=== PATIENT | female | born 1945 | race Caucasian/White ===

== ENCOUNTER 2017-12-31 14:53 | Observation (INO) | payer MEDICARE ==
[~2017-12-31] VITALS: Ht 162.6 cm; Wt 71.5 kg
[2017-12-31] MEDS ORDERED: LISINOPRIL10 MG PO (15:17)
[2017-12-31] MEDS ORDERED: ASPIRIN 325 MG TAB PO ONE (16:00)
[2017-12-31] MEDS ORDERED: ASPIRIN 81 MG CHEW TAB PO ONE (16:15)
[2017-12-31 18:05] VITALS: BP 169/73
[2017-12-31 18:15] VITALS: BP 169/73
[2017-12-31 19:51] VITALS: BP 169/73
[2017-12-31 22:09] VITALS: BP 157/67
[2017-12-31 22:10] VITALS: BP 157/67
[2018-01-01] VITALS (8 sets, daily range): BP systolic 116–151; BP diastolic 56–69
[2018-01-01 00:23] LABS: CREATINE KINASE MB 1.7 ng/mL (0-5.0)
[2018-01-01 06:38] LABS: BASOPHILS # (AUTO) 0.1 (0.0-0.1); BASOPHILS % 0.7 % (0.0-1.0); EOSINOPHILS # (AUTO) 0.1 (0.0-0.4); EOSINOPHILS % 1.4 % (0.0-6.0); HEMATOCRIT 39.5 % (34.2-44.1); HEMOGLOBIN 13.3 g/dL (12.0-16.0); LYMPHOCYTES # (AUTO) 4.1 (1.0-3.2); LYMPHOCYTES % 50.4 % (18.0-39.1); MEAN CORPUSCULAR HEMOGLOBIN 30.2 pg (28-32); MEAN CORPUSCULAR HGB CONC 33.7 g/dL (31-35); MEAN CORPUSCULAR VOLUME 89.8 fL (81-99); MONOCYTES # (AUTO) 0.6 (0.2-0.8); MONOCYTES % 7.4 % (4.4-11.3); NEUTROPHILS # (AUTO) 3.2 (2.1-6.9); NEUTROPHILS % 39.9 % (38.7-80.0); PLATELET COUNT 263 x10e3/uL (140-360); RED CELL DISTRIBUTION WIDTH 14.2 % (11.7-14.4)
[2018-01-01 06:57] LABS: ANION GAP 16.1 mmol/L (8-16); CALCIUM 9.9 mg/dL (8.4-10.2); CREATININE, SERUM 1.19 mg/dL (0.57-1.11); POTASSIUM 5.1 mmol/L (3.5-5.1)
[2018-01-01] MEDS: LISINOPRIL 10 MG TAB PO SCH (09:14)
[2018-01-01] MEDS ORDERED: METOPROLOL TARTRATE INJ 1 MG/ML VIAL IV PRN (12:45)
[2018-01-01] MEDS ORDERED: NITROGLYCERIN 0.4 MG SUBL SL PRN (12:45)
[2018-01-01] MEDS ORDERED: HYDRALAZINE HCL 20 MG/ML VIAL IV PRN (12:45)
[2018-01-01 13:14] LABS: CHOL/HDL RATIO 10.2 (3.0-3.6); CHOLESTEROL 235 MD/DL (0-199); HDL CHOLESTEROL 23 MG/DL (40-60); MAGNESIUM 1.7 MG/DL (1.3-2.1); TRIGLYCERIDES 464 MG/DL (0-149)
[2018-01-01 13:37] LABS: FREE THYROXINE INDEX 2.1264 (1.4-3.8); THYROID STIMULATING HORMONE 3.004 uIU/mL (0.350-4.940)
[2018-01-02] VITALS: BP 113/53
[2018-01-02 04:00] VITALS: BP 106/54
[2018-01-02 08:00] VITALS: BP 107/58
[2018-01-02] MEDS: LISINOPRIL 10 MG TAB PO SCH (09:00)
[2018-01-02 11:55] VITALS: BP 143/79
[2018-01-02 15:06] VITALS: BP 143/79
[2018-01-02 15:17] VITALS: BP 117/57
== END 2018-01-02 16:31 | disposition home or self-care (01) ==
LOC: FSED 14:53 → IMCU 16:02
PROVIDERS: ADMIT Internal Medicine; ATTEND Internal Medicine
DX: R07.89 Other chest pain (principal); R73.09 Other abnormal glucose; I10 Essential (primary) hypertension; Z82.49 Family history of ischemic heart disease and other diseases of the circulatory system
CPT/HCPCS: 36415 ×3; 80048; 80061; 82550 ×2; 82553 ×2; 82948 ×2; 83735; 83880; 84100; 84436; 84443; 84479; 84484 ×2; 84550; 85025; 93306; 99284; G0378 ×3

== ENCOUNTER 2019-04-19 21:17 | Emergency (ER) | payer MEDICARE ==
[~2019-04-19] VITALS: Ht 162.6 cm; Wt 65.8 kg
[~2019-04-19 21:17] MED LIST: LISINOPRIL10 MG PO
[2019-04-19] MEDS ORDERED: TETANUS/DIPHTHERIA TOX ADULT 0.5 ML SYR ONE (21:43)
[2019-04-19] MEDS ORDERED: TETANUS/DIPHTHERIA TOX ADULT 0.5 ML SYR IM ONE (21:45)
[2019-04-19] MEDS ORDERED: TYLENOL WITH C1 EACH PO (21:54)
[2019-04-19] MEDS ORDERED: AUGMENTIN 875-1 EACH PO (21:54)
[2019-04-19] MEDS ORDERED: CEFTRIAXONE SOD 1 GM VIAL IM ONE (22:00)
[2019-04-19] MEDS ORDERED: CEFTRIAXONE SOD 1 GM VIAL ONE (22:06)
[2019-04-19] MEDS ORDERED: LIDOCAINE HCL 2% LOCAL 20 ML VIAL ONE (22:07)
--- NOTE | 2019-04-19 22:37 | Diagnostic Imaging Report ---
FOOT 3 VIEW RT - HOPD - 3 views HISTORY: Pain COMPARISON: None available. FINDINGS: Bones: No acute displaced fracture. Osseous alignment is within normal limits. Joints: No malalignment. Soft tissues: Mild soft tissue swelling along the lateral hindfoot. IMPRESSION: No acute radiographic abnormality. Signed by: Dr. Jv Mathis MD on 04/19/2019 10:33 PM
== END 2019-04-19 22:22 | disposition home or self-care (01) ==
LOC: FSED 21:17
DX: S90.871A Other superficial bite of right foot, initial encounter (principal); W55.01XA Bitten by cat, initial encounter; Y92.008 Other place in unspecified non-institutional (private) residence as the place of occurrence of the external cause; I10 Essential (primary) hypertension; I51.9 Heart disease, unspecified
CPT/HCPCS: 73630; 90471; 90714; 99283; J0696; J2001